=== PATIENT | female | born 1955 | race Caucasian/White ===

== ENCOUNTER 2017-05-01 20:44 | Emergency (ER) | payer MEDICARE ==
[~2017-05-01] VITALS: Ht 177.8 cm; Wt 67.0 kg
[2017-05-01 21:03] VITALS: BP 141/78; PULSE 84; RESP 20; TEMP 97.9; O2SAT 88
[2017-05-01 21:12] VITALS: BP 139/69; PULSE 71; RESP 24; O2SAT 96
[2017-05-01 21:13] VITALS: BP 139/69; PULSE 73; RESP 24; O2SAT 97
[2017-05-01] MEDS ORDERED: predniSONE 20 MG TAB PO ONE (21:15)
[2017-05-01] MEDS ORDERED: RESP: ALBUTEROL 2.5 MG/IPRATROPIUM 0.5 MG NEB (SCH) NEB ONE (21:15)
[2017-05-01] MEDS ORDERED: SODIUM CHLORIDE 0.9% FLUSH 10 ML FLUSH IVF PRN (21:15)
--- NOTE | 2017-05-01 21:16 | PD ---
HPI Chief Complaint: Respiratory Symptoms Time Seen by Provider: 21:11 Travel History International Travel<30 days: No Contact w/Intl Traveler<30days: No Traveled to known affect area: No History of Present Illness HPI Patient 61-year-old female with a history of COPD on 2 L oxygen at home at night only presents emergency Department with shortness of breath. She states his shortness of breath started earlier today. She is currently in town from [place] morning the loss of her mother. She states she's been using her mother's oxygen at home. She states that her shortness of breath is fairly mild but she did have to use her is cannula oxygen level earlier in the day today. She denies any chest pain cough fevers nausea or vomiting or diarrhea. States her symptoms are mild to moderate. She states she has been admitted for COPD in the past and thinks that she has caught up earlier than that. PFSH Past Medical History Anxiety: Yes COPD: Yes Diminished Hearing: No Immunizations Current: No Tetanus Vaccination: Unknown Influenza Vaccination: No ?: Not : 3 Para: 3 Past Surgical History Cholecystectomy: Yes Hysterectomy: Yes Social History Alcohol Use: Yes (DAILY) Tobacco Use: No Substance Use: No Allergies-Medications (Allergen,Severity, Reaction): Coded Allergies: Flagyl (Verified Adverse Reaction, Severe, Cramping, 05/01/17) Reported Meds & Prescriptions Reported Meds & Active Scripts Active Spiriva Handihaler (Tiotropium Inh) 18 Mcg Cap 18 Mcg INH DAILY 30 Days 1 capsule = 18 mcg Prednisone 20 Mg Tab 60 Mg PO DAILY [address] (Duloxetine HCl) 60 Mg Capdr 60 Mg PO DAILY Reported [Home O2] 2 LEANN.CANULA PRN Spiriva Handihaler (Tiotropium Inh) 18 Mcg Cap 18 Mcg INH DAILY 1 capsule = 18 mcg Albuterol Neb (Albuterol Sulfate) 2.5 Mg/0.5 Ml Neb 2.5 Mg NEB ONCE Note: The Albuterol Sulfate Inhalation Solution is concentrated and must be diluted. Read complete instructions carefully before using. Proventil Hfa 6.7 GM Inh (Albuterol Sulfate) 90 Mcg/Act Aer 2 Puff INH Q4-6H PRN Advair Diskus Inh (Fluticasone-Salmeterol Inh) 500-50 Mcg/Blist Aer 1 Puff INH BID Rinse mouth after use. Review of Systems Except as stated in HPI: all other systems reviewed are Neg Physical Exam Narrative GENERAL: Well-developed, thin in no obvious distress. SKIN: Focused skin assessment warm/dry. HEAD: Atraumatic. Normocephalic. EYES: Pupils equal and round. No scleral icterus. No injection or drainage. ENT: No nasal bleeding or discharge. Mucous membranes pink and moist. NECK: Trachea midline. No JVD. CARDIOVASCULAR: Regular rate and rhythm. No murmur appreciated. RESPIRATORY: No accessory muscle use. Breath sounds equal bilaterally. Slightly decreased aeration bilaterally. There is a slight wheeze end expiratory only. GASTROINTESTINAL: Abdomen soft, non-tender, nondistended. Hepatic and splenic margins not palpable. MUSCULOSKELETAL: No obvious deformities. No clubbing. No cyanosis. No edema. NEUROLOGICAL: Awake and alert. No obvious cranial nerve deficits. Motor grossly within normal limits. Normal speech. PSYCHIATRIC: Appropriate mood and affect; insight and judgment normal. Data Data Last Documented VS Vital Signs Date Time Temp Pulse Resp B/P Pulse Ox O2 Delivery O2 Flow Rate FiO2 05/01/17 23:39 73 20 126/60 95 05/01/17 21:22 Nasal Cannula 2.00 05/01/17 21:03 97.9 Orders Electrocardiogram (05/01/17 21:11) Basic Metabolic Panel (Bmp) (05/01/17 21:11) Complete Blood Count With Diff (05/01/17 21:11) Magnesium (Mg) (05/01/17 21:11) Troponin I (05/01/17 21:11) Ecg Monitoring (05/01/17 21:11) Iv Access Insert/Monitor (05/01/17 21:11) Oximetry (05/01/17 21:11) Oxygen Administration (05/01/17 21:11) Sodium Chloride 0.9% Flush (Ns Flush) (05/01/17 21:15) Chest, Pa & Lat (05/01/17 21:11) Albuterol-Ipratropium Neb (Duoneb Neb) (05/01/17 21:15) Prednisone (Deltasone) (05/01/17 21:15) Labs Laboratory Tests Test 05/01/17 21:15 White Blood Count 8.1 TH/MM3 Red Blood Count 4.93 MIL/MM3 Hemoglobin 14.4 GM/DL Hematocrit 41.9 % Mean Corpuscular Volume 85.1 FL Mean Corpuscular Hemoglobin 29.2 PG Mean Corpuscular Hemoglobin 34.4 % Concent Red Cell Distribution Width 14.3 % Platelet Count 248 TH/MM3 Mean Platelet Volume 10.1 FL Neutrophils (%) (Auto) 51.0 % Lymphocytes (%) (Auto) 36.6 % Monocytes (%) (Auto) 9.1 % Eosinophils (%) (Auto) 2.6 % Basophils (%) (Auto) 0.7 % Neutrophils # (Auto) 4.1 TH/MM3 Lymphocytes # (Auto) 3.0 TH/MM3 Monocytes # (Auto) 0.7 TH/MM3 Eosinophils # (Auto) 0.2 TH/MM3 Basophils # (Auto) 0.1 TH/MM3 CBC Comment DIFF FINAL Differential Comment Sodium Level 141 MEQ/L Potassium Level 3.9 MEQ/L Chloride Level 105 MEQ/L Carbon Dioxide Level 28.8 MEQ/L Anion Gap 7 MEQ/L Blood Urea Nitrogen 10 MG/DL Creatinine 0.88 MG/DL Estimat Glomerular Filtration 65 ML/MIN Rate Random Glucose 112 MG/DL Calcium Level 8.9 MG/DL Magnesium Level 2.3 MG/DL Troponin I LESS THAN 0.02 NG/ML MDM Medical Decision Making Medical Screen Exam Complete: Yes Emergency Medical Condition: Yes Interpretation(s) EKG shows sinus rhythm with a normal axis and normal R-wave progression. T- wave inversions in V5 and V6. No ST segment changes. No previous for comparison. This is an abnormal EKG. Differential Diagnosis COPD exacerbation, pneumonia, hypoxemia. Narrative Course 61-year-old female roomed emergency department, she states her symptoms are fairly mild currently and her symptoms are highly consistent with COPD exacerbation. She was given duo nebs and steroids in the emergency department and states her symptoms are completely relieved. While on 2 L nasal cane as she continued to saturate 90% plus. Briefly considered pulmonary embolism with this patient however I think this is highly unlikely. I think the risks of radiation exposure outweigh the potential benefits at this time. He was discussed with the patient that given her saturation of 87% on the way here I do have some concerns for her going home however she states that she does have her mom's oxygen at home and can use that. I discussed she is welcome to return in emerged permit any time should she need. She was discharged to self- care, her son is here and is going to drive her home. Last 24 hours Impressions Chest X-Ray 05/01/172110 Signed Impressions: Service Date/Time: Monday, May 01, 2017 21:57 - CONCLUSION: Hyperinflation with linear atelectasis or scarring at the bases. No effusion. No pneumothorax. Eris Trivedi MD Diagnosis Primary Impression: COPD exacerbation Med/Other Pt SpecificInfo: Prescription(s) given Scripts Tiotropium Inh (Spiriva Handihaler)18 Mcg Cap18 Mcg INH DAILY 30 Days Ref 0 1 capsule = 18 mcg Prov:Russell Connor MD 05/01/17 Prednisone 20 Mg Tab60 Mg PO DAILY 5 Days Ref 0 Prov:Russell Connor MD 05/01/17 Duloxetine (Heracliombalta )60 Mg Capdr60 Mg PO DAILY #30 CAP Ref 0 Prov:Russell Connor MD 05/01/17 Disposition: 01 DISCHARGE HOME Condition: Stable Russell Connor MD May 01, 2017 21:16
[2017-05-01 21:22] VITALS: O2SAT 99
[2017-05-01 21:23] LABS: AUTOMATED NEUTROPHIL # 4.1 TH/MM3 (1.8-7.7); BASOPHIL # 0.1 TH/MM3 (0-0.2); BASOPHIL % 0.7 % (0.0-2.0); EOSINOPHIL # 0.2 TH/MM3 (0-0.4); EOSINOPHIL % 2.6 % (0.0-4.0); HEMATOCRIT 41.9 % (35.0-46.0); HEMO FLAGS DIFF FINAL; LYMPH % 36.6 % (9.0-44.0); MEAN CELL VOLUME 85.1 FL (80.0-100.0); MEAN CORPUSCULAR HEMOGLOBIN 29.2 PG (27.0-34.0); MEAN CORPUSCULAR HGB CONC 34.4 % (32.0-36.0); MONO % 9.1 % (0.0-8.0); PLATELET COUNT 248 TH/MM3 (150-450); RED BLOOD COUNT 4.93 MIL/MM3 (4.00-5.30); RED CELL DISTRIBUTION WIDTH 14.3 % (11.6-17.2); WHITE BLOOD COUNT 8.1 TH/MM3 (4.0-11.0)
[2017-05-01 21:29] LABS: CHLORIDE 105 MEQ/L (98-107); POTASSIUM 3.9 MEQ/L (3.5-5.1); SODIUM (NA) 141 MEQ/L (136-145)
[2017-05-01 21:32] LABS: ANION GAP 7 MEQ/L (5-15); BICARBONATE 28.8 MEQ/L (21.0-32.0); MAGNESIUM 2.3 MG/DL (1.5-2.5)
[2017-05-01] MEDS ORDERED: CYMB60CA PO ×2 (21:32→22:57)
[2017-05-01] MEDS ORDERED: HOME O2 NAS.CANULA (21:32)
[2017-05-01] MEDS ORDERED: SPIRCAP INH ×2 (21:32→22:57)
[2017-05-01] MEDS ORDERED: ALBU.5I NEB (21:32)
[2017-05-01] MEDS ORDERED: ADVA500A INH (21:32)
[2017-05-01] MEDS ORDERED: ALBU6.7H INH (21:32)
[2017-05-01 21:33] LABS: BLOOD UREA NITROGEN 10 MG/DL (7-18)
[2017-05-01 21:36] LABS: GLOMERULAR FILTRATION RATE 65 ML/MIN (>89)
--- NOTE | 2017-05-01 22:40 | RADHPO ---
EXAM DATE/TIME: 05/01/2017 21:57 [facility] COMPARISON: No previous studies available for comparison. INDICATIONS : Shortness of breath. MEDICAL HISTORY : None. SURGICAL HISTORY : Fusion, cervical. ENCOUNTER: Initial ACUITY: 1 day PAIN SCORE: 0/10 LOCATION: Bilateral chest FINDINGS: Lungs are hyperinflated with linear atelectasis or scarring in the lung bases. Heart size normal. No significant effusion. Previous fusion cervical spine. CONCLUSION: Hyperinflation with linear atelectasis or scarring at the bases. No effusion. No pneumothorax. Eris Trivedi MD on May 01, 2017 at 22:37 Board Certified Radiologist. This report was verified electronically.
[2017-05-01] MEDS ORDERED: PRED20 PO (22:57)
[2017-05-01 23:39] VITALS: BP 126/60
--- NOTE | 2017-05-03 10:01 | EKG ---
Date Performed: 05/01/2017 Time Performed: 21:15:06 PTAGE: 61 years EKG: Sinus rhythm Inferior/lateral T wave changes may be due to myocardial ischemia Abnormal ECG NO PREVIOUS TRACING DOCTOR: Dejuan Palacios Interpretating Date/Time 05/03/2017 09:48:27
== END 2017-05-01 23:42 | disposition home or self-care (01) ==
LOC: PHED 20:44
DX: J44.1 Chronic obstructive pulmonary disease with (acute) exacerbation (principal); R94.31 Abnormal electrocardiogram [ECG] [EKG]; Z79.899 Other long term (current) drug therapy
CPT/HCPCS: 71020; 80048; 83735; 84484; 85025; 93005; 94664; 99285; J7512